=== PATIENT | male | born 2000 | race Two or more races ===

== ENCOUNTER 2025-07-27 11:25 | Emergency (ER) | payer MEDICAID ==
[~2025-07-27] VITALS: Ht 160 cm; Wt 49.0 kg
[2025-07-27 11:26] VITALS: TEMP 97
[2025-07-27 11:43] VITALS: BP 101/53; PULSE 66; RESP 24; O2SAT 100
--- NOTE | 2025-07-27 11:51 | ED.PDOC ---
GI ASSESSMENT HPI Comments 25 year old male presents to the ED with a chief complaint of abdominal pain onset today. Patient states he woke up this morning experiencing diffused abdominal pain as well as nausea/vomiting. Last marijuana use was last night. Denies fever, chills, diarrhea, headache, dizziness, blurred vision, chest pain, shortness of breath, numbness/tingling, dysuria, hematuria, hematemesis, melena, blood in stool. No other symptoms or modifying factors present at this time. Chief Complaint: Abdominal Pain Time Seen by MD: 11:45 Reviewed Notes: Medications, Allergies Allergies: Coded Allergies: NO KNOWN ALLERGIES (Unverified , 07/27/25) Information Source: Patient Mode of Arrival: Wheelchair Timing: Hours Duration: Since onset Prehospital treatment: None Quality: Sharp Severity: Moderate Recent: None Recent Hx of: None Pain Location: Diffuse Modifying Factors: Nothing Associated sign and symptoms: Nausea, Vomiting, Abdominal Pain Past Medical History PAST MEDICAL HISTORY: Denies Surgical History: Denies all surgeries Family History Family History: Reviewed,noncontributory to illness, No family hx of Cancer, No family hx of DM, No family hx of Heart rochelle, No family hx of HTN, No family hx ofKidney rochelle, No family hx of Liver rochelle, No family hx of Lung rochelle, No family hx of Stroke Social History Smoker: Non-Smoker Alcohol: Denies ETOH Use Drugs: Marijuana Lives In: Home Constitutional: denies: chills, diaphoresis, fatigue, fever, malaise, sweats, weakness, others EENTM: denies: blurred vision, double vision, ear bleeding, ear discharge, ear drainage, ear pain, ear ringing, eye pain, eye redness, hearing loss, mouth pain, mouth swelling, nasal discharge, nose bleeding, nose congestion, nose pain, photophobia, tearing, throat pain, throat swelling, voice changes, others Respiratory: denies: cough, hemoptysis, orthopnea, SOB at rest, shortness of breath, SOB with excertion, stridor, wheezing, others Cardiovascular: denies: chest pain, dizzy spells, diaphoresis, Dyspnea on exertion, edema, irregular heart beat, left arm pain, lightheadedness, palpitations, PND, syncope, others Gastrointestinal: reports: abdominal pain, nausea, vomiting; denies: abdomen distended, blood streaked bowels, constipated, diarrhea, dysphagia, difficulty swallowing, hematemesis, melena, poor appetite, poor fluid intake, rectal bleeding, rectal pain, others Genitourinary: denies: burning, dysuria, flank pain, frequency, hematuria, incontinence, penile discharge, penile sore, pain, testicle pain, testicle swelling, urgency, others Neurological: denies: dizziness, fainting, headache, left sided numbness, left sided weakness, numbness, paresthesia, pre-existing deficit, right sided numbness, right sided weakness, seizure, speech problems, tingling, tremors, weakness, others Musculoskeletal: denies: back pain, gout, joint pain, joint swelling, muscle pain, muscle stiffness, neck pain, others Integumetry: denies: bruises, change in color, change in hair/nails, dryness, laceration, lesions, lumps, rash, wounds, others Allergic/Immunocompromised: denies: Difficulty Healing, Frequent Infections, Hives, Itching, others Hematologic/Lymphatic: denies: anemia, blood clots, easy bleeding, easy bruisin g, swollen glands, others Endocrine: denies: excessive hunger, excessive sweating, excessive thirst, excessive urination, flushing, intolerance to cold, intolerance to heat, unexplained weight gain, unexplained weight loss, others Psychiatric: denies: anxiety, bipolar disorder, depression, hopeless, panic disorder, schizophrenia, sleepless, suicidal, others All Other Systems: Reviewed and Negative Physical Exam General Appearance: Moderate Distress, Normal HEENT: Normal ENT Inspection, Pharynx Normal, TMs Normal Neck: Full Range of Motion, Non-Tender, Normal, Normal Inspection Respiratory: Chest Non-Tender, Lungs Clear, No Accessory Muscle Use, No Respiratory Distress, Normal Breath Sounds Cardiovascular: No Edema, No JVD, No Murmur, No Gallop, Normal Peripheral Pulses, Regular Rate/Rhythm Breast Exam: Deferred Gastrointestinal: No Organomegaly, Non Tender, No Pulsatile Mass, Normal Bowel Sounds, Soft Genitalia: Deferred Pelvic: Deferred Rectal: Deferred Extremities: No calf tenderness, Normal capillary refill, Normal inspection, Normal range of motion, Non-tender, No pedal edema Musculoskeletal : Apperance: Normal Neurologic: Alert, 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 Was a procedure done?: No GI differential Dx Differential Diagnosis: Constipation, Diverticular disease, Esophagitis, Gastritis/PUD, Gastroenteritis, Dehydration, Electrolyte Imbalance, Bacterial, Viral X-Ray, Labs, Meds, VS Vital Signs Date Time Temp Pulse Resp B/P (MAP) Pulse Ox O2 Delivery O2 Flow Rate FiO2 07/27/25 11:43 66 24 101/53 (69) 100 07/27/25 11:34 96.7 84 24 117/85 (96) 100 96.7 07/27/25 11:26 97.0 75 20 106/63 100 97.0 Lab Test 07/27/25 11:57 Range/Units White Blood Count 5.5 4.4-10.8 10^3/uL Red Blood Count 5.18 4.5-5.90 10^6/uL Hemoglobin 16.3 13.5-17.5 g/dL Hematocrit 47.1 41.0-53.0 % Mean Corpuscular Volume 90.9 80.0-100.0 fL Mean Corpuscular Hemoglobin 31.5 28.0-32.0 pg Mean Corpuscular Hemoglobin Concent 34.7 32.0-36.0 g/dL Red Cell Distribution Width 12.7 11.8-14.3 % Platelet Count 177 140-450 10^3/uL Mean Platelet Volume 11.1 H 6.9-10.8 fL Neutrophils (%) (Auto) 52.1 37.0-80.0 % Lymphocytes (%) (Auto) 41.3 10.0-50.0 % Monocytes (%) (Auto) 3.4 0.0-12.0 % Eosinophils (%) (Auto) 1.8 0.0-7.0 % Basophils (%) (Auto) 1.4 0.0-2.0 % Neutrophils # (Auto) 2.9 1.6-8.6 10 ^3/uL Lymphocytes # (Auto) 2.3 0.4-5.4 10 ^3/uL Monocytes # (Auto) 0.2 0-1.3 10 ^3/uL Eosinophils # (Auto) 0.1 0-0.8 10 ^3/uL Basophils # (Auto) 0.1 0-0.2 10 ^3/uL Nucleated Red Blood Cells 0.2 % Sodium Level 142 136-145 mmol/L Potassium Level 3.7 3.5-5.1 mmol/L Chloride Level 108 H 98-107 mmol/L Carbon Dioxide Level 22 20-31 mmol/L Anion Gap 12 5-15 Blood Urea Nitrogen 8 L 9-23 mg/dL Creatinine 1.03 0.700-1.30 mg/dL Glomerular Filtration Rate Calc 102 >90 mL/min BUN/Creatinine Ratio 7.8 L 10.0-20.0 Serum Glucose 147 H 74-106 mg/dL Calcium Level 9.8 8.7-10.4 mg/dL Current Medications Medications (Trade) Dose Ordered Sig/Louisa Route Start Time Stop Time Status Last Admin Sodium Chloride 1,000 ml @ 1,000 mls/hr Q1H ONCE IVB 07/27/25 12:00 07/27/25 12:59 07/27/25 12:23 Prochlorperazine Edisylate (Compazine Inj) 10 mg ONCE ONCE IV 07/27/25 12:00 07/27/25 12:01 DC 07/27/25 12:23 Patient alert. Complaining of nausea vomiting. Vitals stable. Answering questions. Establish intravenous access. Was given fluids. Marijuana induced. Explained to the patient. Was told to follow up with his primary care physician. Was told to come back if there is any problem. Time of 1ST Reevaluation: 12:15 Reevaluation 1ST: Unchanged Patient Education/Counseling: Diagnosis, Treatment, Prognosis Family Education/Counseling: No Family Present SEPSIS Sepsis Screen Date sepsis recognized/suspect: Jul 27, 2025 Time Sepsis recognized/suspect: 1128 Recent Procedure: No On Antibiotic Therapy: No Respiratory Rate >20: No Heart Rate >90: No Temp<36 C (96.8 F) or >38.3 C: No SBP <90 or MAP <65 mmHG: No New Acute Mental Status Change: No Is the patient on CPAP, BIPAP,: No Physician Orders Sodium Chloride 0.9% (07/27/25 12:00) Ketorolac Injection (Toradol Injection) (07/27/25 13:00) Vital Signs Date Time Temp Pulse Resp B/P (MAP) Pulse Ox O2 Delivery O2 Flow Rate FiO2 07/27/25 11:43 66 24 101/53 (69) 100 07/27/25 11:34 96.7 84 24 117/85 (96) 100 96.7 07/27/25 11:26 97.0 75 20 106/63 100 97.0 Laboratory Tests Test 07/27/25 11:57 White Blood Count 5.5 10^3/uL (4.4-10.8) Medications Medications Dose Ordered Sig/Louisa Route Start Time Stop Time Status Last Admin Dose Admin Prochlorperazine Edisylate 10 mg ONCE ONCE IV 07/27/25 12:00 07/27/25 12:01 DC 07/27/25 12:23 Sodium Chloride 1,000 ml @ 1,000 mls/hr Q1H ONCE IVB 07/27/25 12:00 07/27/25 12:59 07/27/25 12:23 Departure 1 Departure Time of Disposition: 11:54 Impression: Primary Impression: Cannabis abuse Additional Impression: Uncontrolled diabetes mellitus Qualified Codes: E13.65 - Other specified diabetes mellitus with hyperglycemia Disposition: 01 HOME / SELF CARE / HOMELESS Condition: Good Discharged With: Self Critical Care Note Critical Care Time?: No Stability Stability form required: No Heart Score Heart Score: Heart Score Response (Comments) Value History N/A 0 EKG N/A 0 Age N/A 0 Risk Factors N/A 0 Troponin N/A 0 Total 0 I personally scribed for JAYDE SANDERS MD ([email or web address]) on 07/27/25 at 11:51. Electronically submitted by Jennifer Amin ([email or web address]). JAYDE SANDERS MD Jul 27, 2025 11:51
[2025-07-27 12:18] LABS: Hematocrit 47.1 % (41.0-53.0); Hemoglobin 16.3 g/dL (13.5-17.5); Mean Corpuscular Hemoglobin 31.5 pg (28.0-32.0); Mean Corpuscular Volume 90.9 fL (80.0-100.0); Nucleated Red Blood Cells % 0.2 %
[2025-07-27 12:23] LABS: Potassium 3.7 mmol/L (3.5-5.1); Sodium 142 mmol/L (136-145)
[2025-07-27] MEDS: PROCHLORPERAZINE EDISYLATE 5 MG/ML 2ML VIAL IV ONE (12:23)
[2025-07-27] MEDS: SODIUM CHLORIDE 0.9% 1,000 ML IVB ONE (12:23)
[2025-07-27 12:24] LABS: Anion Gap 12 (5-15); Calcium 9.8 mg/dL (8.7-10.4); Carbon Dioxide 22 mmol/L (20-31); Chloride 108 mmol/L (98-107)
[2025-07-27 12:29] LABS: BUN/Creatinine Ratio 7.8 (10.0-20.0)
[2025-07-27 12:30] LABS: Blood Urea Nitrogen 8 mg/dL (9-23); Glucose 147 mg/dL (74-106)
[2025-07-27] MEDS: KETOROLAC TROMETH 30 MG/ML 1ML VIAL IV ONE (13:03)
[2025-07-27] MEDS ORDERED: HYDROmorphone HCL 2 MG/ML VL/or syr IV ONE (13:30)
== END 2025-07-27 13:50 | disposition home or self-care (01) ==
LOC: ER 11:25
DX: F12.10 Cannabis abuse, uncomplicated (principal); E11.65 Type 2 diabetes mellitus with hyperglycemia
CPT/HCPCS: 36415; 80048; 85025; 96361; 96374; 96375; 99284; J0780; J1885; J7030